=== PATIENT | male | born 1955 | race Caucasian/White ===

== ENCOUNTER 2017-05-06 08:30 | Emergency (ER) | payer BC ==
[2017-05-06 09:31] VITALS: BP 121/62
--- NOTE | 2017-05-06 09:37 | UC ---
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 PRODUCTIVE COUGH, RUNNY NOSE. FATIUGE BODY ACHES. WAS NOT ABLE TO WORK THIS WEED. FEELS LIGHT HEADED AT TIMES. STATES HE IS FEELING BETTER THAN HE DID EARLIER IN THE WEEK " He feels about 75% better. cough is better, no wheezing. no CP/SPB. no sinus pain. had subjective fever that has resolved. he requests OOW note fro 05/04-. no myalgias. appetite is nml. - History of Current Complaint Chief Complaint: UCRespiratory Stated Complaint: COUGH,LIGHT HEADED X 5 DAYS Time Seen by Provider: 05/06/17 09:35 Pain Intensity: 0 - Allergies/Home Medications Allergies/Adverse Reactions: Allergies Allergy/AdvReac Type Severity Reaction Status Date / Time No Known Allergies Allergy Verified 05/06/17 09:23 Home Medications: Home Medications Dm/Acetaminophen/Doxylamine [Night Time Cold & Flu Liquid] 10 ml PO PRN [History] PMH/Surg Hx/FS Hx/Imm Hx Previously Healthy: Yes - Surgical History Surgical History: None - Family History Known Family History: Negative: Cardiac Disease, Diabetes - Social History Alcohol Use: Rare Substance Use Type: None Smoking Status (MU): Former Smoker Type: Cigarettes When Did the Patient Quit Smoking/Using Tobacco: 15 YRS AGO Review of Systems Constitutional: Chills Skin: Negative Eyes: Negative ENT: Sore Throat, Ear Ache, Sinus Congestion Respiratory: Cough Cardiovascular: Negative Gastrointestinal: Negative Genitourinary: Negative Motor: Negative Neurovascular: Negative Musculoskeletal: Negative Neurological: Negative Psychological: Negative Is Patient Immunocompromised?: No All Other Systems Reviewed And Are Negative: Yes Physical Exam Triage Information Reviewed: Yes Appearance: Well-Appearing, No Pain Distress, Well-Nourished - very pleasant Vital Signs: Initial Vital Signs Temp 98.6 F 05/06/17 09:23 Pulse 69 05/06/17 09:23 Resp 20 05/06/17 09:23 BP 121/62 05/06/17 09:23 Pulse Ox 99 05/06/17 09:23 Vital Signs Reviewed: Yes Eye Exam: Normal ENT Exam: Normal ENT: Positive: Pharynx normal, TMs normal. Negative: TM bulging, TM dull, TM red, Tonsillar swelling, Tonsillar exudate, Sinus tenderness Dental Exam: Normal Neck exam: Normal Neck: Positive: Supple, Nontender, No Lymphadenopathy Respiratory Exam: Normal Respiratory: Positive: Lungs clear, No respiratory distress, No accessory muscle use, Decreased breath sounds - mild b/l diminshed. Negative: Crackles, Rhonchi, Stridor, Wheezing Cardiovascular Exam: Normal Cardiovascular: Positive: RRR, No Murmur, Pulses Normal Abdomen Description: Positive: Nontender, Soft Musculoskeletal Exam: Normal Neurological Exam: Normal Psychological Exam: Normal Skin Exam: Normal UC Diagnostic Evaluation - Laboratory O2 Sat by Pulse Oximetry: 99 Respiratory Course/Dx - Course Course Of Treatment: much improved. doesnt feel he needs anything more than OOW note. No evidence for any bacterial infection at this time. - Differential Dx/Diagnosis Provider Diagnoses: Viral URI Discharge - Discharge Plan Condition: Stable Disposition: HOME Prescriptions: Albuterol HFA INHALER* [Ventolin HFA Inhaler*] 2 puff INH Q4H PRN #1 mdi PRN Reason: Cough Patient Education Materials: Upper Respiratory Infection (ED) Forms: *Work Release Referrals: No Primary Care Phys,NOPCP [Primary Care Provider] - Additional Instructions: Follow up with your primary care provider if your symptoms increase or persist.
== END 2017-05-06 10:29 | disposition home or self-care (01) ==
LOC: UCCORT 08:30
DX: J06.9 Acute upper respiratory infection, unspecified (principal); Z87.891 Personal history of nicotine dependence
CPT/HCPCS: 99202; G0463

== ENCOUNTER 2017-11-26 16:16 | Emergency (ER) | payer BC ==
[2017-11-26 18:12] VITALS: BP 132/70
--- NOTE | 2017-11-26 18:22 | UC ---
Dental HPI - HPI Summary HPI Summary: 62 y/o male presents to the urgent care c/o left lower jaw dental pain since yesterday. Pt reports he removed his dentures due to pain this morning. He has mild swelling around the only molar he has in the left lower jaw. Pain is 6/10. He took one ASA this morning to alleviate symptoms. Pt denies trismus, fever, SOB, chest pain, abdominal pain, N/V/D. His Dentist is DR Daugherty, but he hasn't been able to get an appt. - History of Current Complaint Chief Complaint: UCDentalProblem Stated Complaint: DENTAL Time Seen by Provider: 11/26/17 17:58 Hx Obtained From: Patient Onset/Duration: Gradual Onset, Lasting Days - 1 day, Still Present, Worse Since - today Severity: Moderate Pain Intensity: 6 Pain Scale Used: 0-10 Numeric Aggravating Factor(s): Chewing Alleviating Factor(s): OTC Meds Related History: Other - Pt wears dentures - Allergies/Home Medications Allergies/Adverse Reactions: Allergies Allergy/AdvReac Type Severity Reaction Status Date / Time No Known Allergies Allergy Verified 11/26/17 18:08 PMH/Surg Hx/FS Hx/Imm Hx Previously Healthy: Yes - Pt denies PMHX - Surgical History Surgical History: None Surgery Procedure, Year, and Place: DENIES - Family History Known Family History: Positive: None - Pt denies FMHX Negative: Cardiac Disease, Diabetes - Social History Occupation: Employed Full-time Lives: With Family Alcohol Use: Occasionally Substance Use Type: None Smoking Status (MU): Former Smoker Type: Cigarettes Amount Used/How Often: does still chew When Did the Patient Quit Smoking/Using Tobacco: 15 YRS AGO - Immunization History Most Recent Influenza Vaccination: none Most Recent Tetanus Shot: unknown Most Recent Pneumonia Vaccination: none Review of Systems Constitutional: Negative Skin: Negative Eyes: Negative ENT: Dental Pain - left lower jaw and gum swelling around tooth Respiratory: Negative Cardiovascular: Negative Gastrointestinal: Negative Genitourinary: Negative Motor: Negative Neurovascular: Negative Musculoskeletal: Negative Neurological: Negative Psychological: Negative Is Patient Immunocompromised?: No All Other Systems Reviewed And Are Negative: Yes Physical Exam - Summary Physical Exam Summary: Vital Signs Reviewed: Yes General: Well-Appearing, No Pain Distress, Well-Nourished male sitting in the examining table w/o any apparent distress Eyes: Positive: Conjunctiva Clear - PERRLA, EOMI, ENT: Positive: Normal ENT inspection, Hearing grossly normal, Pharynx normal, TMs normal - B/L external ear canals clear,. Negative: Tonsillar swelling, Tonsillar exudate, Trismus Dental: Positive: Pt only w/ fwe molars in place, he ussually wears denture. Gross Decay/Caries molar #20 , Abscess @ - gingival swelling and erythema, tender to percussion. involves tissue surrounding the molar #20, Cervical Lymphadenopathy - anterior B/L Neck: Positive: Supple Respiratory: Positive: Chest non-tender, Lungs clear, Normal breath sounds, No respiratory distress Cardiovascular: Positive: RRR, No Murmur, Pulses Normal, Brisk Capillary Refill Abdomen Description: Positive: Nontender, No Organomegaly, Soft. Negative: CVA Tenderness (R), CVA Tenderness (L) Bowel Sounds: Positive: Present Musculoskeletal: Positive: Strength Intact, ROM Intact, No Edema Neurological Exam: Normal Psychological Exam: Normal Skin Exam: Normal Triage Information Reviewed: Yes Vital Signs: Initial Vital Signs Temp 98.8 F 11/26/17 18:09 Pulse 70 11/26/17 18:09 Resp 17 11/26/17 18:09 BP 132/70 11/26/17 18:09 Pulse Ox 99 11/26/17 18:09 Dental Complaint Course/Dx - Course Course Of Treatment: 62 y/o male presents to the urgent care c/o left lower jaw dental pain since yesterday. Pt reports he removed his dentures due to pain this morning. He has mild swelling around the only molar he has in the left lower jaw. Pain is 6/10. He took one ASA this morning to alleviate symptoms. Pt denies trismus, fever, SOB, chest pain, abdominal pain, N/V/D. His Dentist is DR Daugherty, but he hasn't been able to get an appt. Hx obtained. Pt with dental abscess around molar #20 w/ gross decay on examination. Pt given viscous Lidocaine at the clinic to alleviate symptoms. Pt Rx Clindamycin PO and Ibuprofen PO for pain. First dose given at the clinic tonihgt. Pt strongly advised to f/u with Dentist as soon as possible further evaluation and treatment. Pt understood and agreed with plan of care. Left the clinic ambulating. - Differential Dx/Diagnosis Differential Diagnosis/Dx: Dental Abscess, Dental Caries, Fractured Tooth, Gingivitis, Odontogenic Pain, Peridontic Disease Provider Diagnoses: 1- Dental abscess at molar molar # 20. 2-Gross decay at molar #20 Discharge - Sign-Out/Discharge Documenting (check all that apply): Patient Departure - D/C home All imaging exams completed and their final reports reviewed: No Studies - Discharge Plan Condition: Stable Disposition: HOME Prescriptions: Clindamycin Cap(NF) [Clindamycin Cap 300 mg Cap(NF)] 300 mg PO TID #29 cap Ibuprofen TAB* [Motrin TAB* 600 MG] 600 mg PO Q6H PRN #30 tab PRN Reason: dental pain Patient Education Materials: Dental Abscess (ED) Referrals: Naima Powell [Primary Care Provider] - 3 Days Additional Instructions: 1-Please take full course of antibiotic to avoid resistance. 2- Take Ibuprofen PO q6-8hrs as instructed after meals to alleviate pain and swelling. 3- F/u with your Dentist or Dental List provided as soon as possible for further treatment. 4- If symptoms do not improve or worsen please return to the urgent care or f/u with your PCP in 3 days for further evaluation and treatment - Billing Disposition and Condition Condition: STABLE Disposition: Home
[2017-11-26] MEDS ORDERED: Clindamycin CAP* 150 MG PO ONE (18:31)
[2017-11-26] MEDS ORDERED: Ibuprofen TAB* 400 MG PO ONE (18:32)
[2017-11-26] MEDS ORDERED: Lidocaine 2% VISCOUS* 15 ML UDC SWISH SPIT ONE (18:32)
== END 2017-11-26 18:53 | disposition home or self-care (01) ==
LOC: UCCORT 16:16
DX: K04.7 Periapical abscess without sinus (principal); K02.9 Dental caries, unspecified; Z87.891 Personal history of nicotine dependence
CPT/HCPCS: 99213; A9270-GY; G0463